=== PATIENT | female | born 1930 | race Caucasian/White ===

== ENCOUNTER 2016-07-20 12:54 | Day surgery (SDC) | payer BC ==
[~2016-07-20] VITALS: Ht 152.4 cm; Wt 72.0 kg
[2016-07-20] MEDS ORDERED: IBUP100T46 PO (15:16)
[2016-07-20] MEDS ORDERED: SIMV10TA6 PO (15:16)
[2016-07-20] MEDS ORDERED: LOSA25TA5 PO (15:16)
[2016-07-20] MEDS ORDERED: PROPOFOL 20 ML ONE (15:55)
[2016-07-20] MEDS ORDERED: FENTAnyl 50 MCG/ML VIAL ONE (15:56)
[2016-07-20] MEDS ORDERED: MIDAZOLAM 1 MG/ML 2 ML INJ ONE (15:56)
[2016-07-20 15:57] VITALS: BP 151/74; PULSE 84; RESP 18
[2016-07-20 16:54] VITALS: BP 136/61; PULSE 60; RESP 18
--- NOTE | 2016-07-20 23:37 | GILP ---
DATE OF PROCEDURE: 07/20/2016 DATE: 07/20/2016 NAME OF PROCEDURE: Colonoscopy to cecum with biopsies. SURGEON: Lewis Luciano MD. PREMEDICATION: Monitored anesthesia care by anesthesiologist. TECHNIQUE: After informed consent, with the patient/relatives understanding the procedure, its indic ations potential risks and complications, including but not limited to: allergic reaction, bleeding, perforation, infection, missed lesions, and after all pertinent questions were answered to the peace ent's satisfaction, the patient/relatives signed the witnessed informed consent. Following this, premedication was administered slowly IV push by under careful cardiovascular and re spiratory monitoring with pulse oximetry, automatic blood pressure and agricultural commodities grader. Once the sedati ve effect was achieved, the patient was placed in the left lateral decubitus position, digital recta l examination was performed. The colonoscope was then introduced and advanced under visual control throughout all segments of the colon including: the rectum, sigmoid, descending colon, splenic flexu re, transverse colon, hepatic flexure, ascending colon and finally reaching the cecum which was ignacia rly identified by transillumination, finger indentation and the ileocecal valve. Careful examinatio n of the mucosa of the lower gastrointestinal tract both on insertion as well as withdrawal of the i nstrument disclosed the following findings: Rectal Examination: Small external hemorrhoids are noted. Colonic Mucosa: The colonic mucosa is remarkable for erythema, edema, and submucosal hemorrhagic ch anges in the area of the rectum. Biopsies were obtained. There is significant diverticulosis in left side of the colon. The mucosa otherwise is unremarkable . No evidence of complications. The ileocecal valve was clearly identified and appears unremarkabl e. The instrument was withdrawn. On withdrawal of the instrument, no additional abnormalities are noted with exception of moderate sized internal hemorrhoids. The instrument was then withdrawn, the patient tolerated the procedure well and was transferred out of the Endoscopy Suite awake and in good condition to continue recovery under observation. IMPRESSION: 1. Left-sided diverticulosis, moderate. 2. Questionable proctitis versus prep artifact. Biopsies obtained. 3. Moderate size internal hemorrhoids. PLAN: The patient will be continued on present regimen. Annual Hemoccult stool testing is recommen ded. Pathology will be reviewed as soon as available. Screening colonoscopy in 10 years is recomme nded. Dictated By: LEWIS LUCIANO MS/NTS Conf#: [id number] DID#: [id number] CC: LEWIS LUCIANO;*End*
--- NOTE | 2016-07-20 23:46 | GILP ---
DATE OF PROCEDURE: 07/20/2016 DATE: 07/20/2016 NAME OF PROCEDURE: Esophagogastroduodenoscopy with biopsies. SURGEON: Lewis Luciano MD HISTORY AND INDICATIONS: The patient is being evaluated for abdominal pain. PREMEDICATION: Monitored anesthesia care by anesthesiologist. INSTRUMENT USED: Olympus panendoscope. TECHNIQUE: After informed consent, with the patient/relatives understanding the procedure, its indic ations, potential risks, and complications, including but not limited to: allergic reaction, bleedin g, perforation or infection, and after all pertinent questions were answered to the patient's satisf action, the patient/relatives signed witnessed informed consent. Following this, premedication was administered slowly IV push under careful cardiovascular and respi ratory monitoring with pulse oximetry, automatic blood pressure and teletypesetter monitor. Once the sedative effect was achieved the patient was place in the left lateral decubitus, the panen doscope was introduced and advanced under visual control. Careful examination of the upper gastrointestinal tract, both on insertion as well as withdrawal of the instrument disclosed the following findings: ESOPHAGUS: The distal third of the esophagus shows significant erythema, edema, and erosion of the mucosa. STOMACH: Upon entrance to the stomach, air was insufflated, the gastric proctor distended normally. There is erythema and edema of the mucosa of a moderate degree. Biopsies were obtained to rule out H. pylori infection. PYLORUS: The pylorus appears patent and within normal limits, with no evidence of gastric outlet ob struction. DUODENUM: The duodenal mucosa was carefully examined in the duodenal bulb as well as the second por tion of the duodenum and appears unremarkable with no evidence of duodenitis, ulcer, or neoplasm. The instrument was then withdrawn, the patient tolerated the procedure well and was transfer out of the endoscopy suite awake, and in good condition to continue recovery under observation IMPRESSION: 1. Erosive esophagitis. 2. Gastritis, rule out Helicobacter pylori infection, biopsies obtained. PLAN: The patient will be treated with PPIs, i.e. omeprazole 40 mg daily. Pathology will be review ed as soon as available. Further recommendation will depend on her clinical course as well as revie w of biopsies. Dictated By: LEWIS LUCIANO MS/NICHOLAS Conf#: [id number] DID#: [id number] CC: LEWIS LUCIANO;*EndCC*
== END 2016-07-21 08:35 | disposition home or self-care (01) ==
LOC: GIL 12:54
PROVIDERS: ATTEND Internal Medicine Gastroenterology
DX: K29.50 Unspecified chronic gastritis without bleeding (principal); K20.8 Other esophagitis; K64.8 Other hemorrhoids; K57.90 Diverticulosis of intestine, part unspecified, without perforation or abscess without bleeding; I10 Essential (primary) hypertension; Z86.73 Personal history of transient ischemic attack (TIA), and cerebral infarction without residual deficits
CPT/HCPCS: 43239; 45380; 88305; 88312; J2250; J3010; Z7610